=== PATIENT | female | born 1955 | race Caucasian/White ===

== ENCOUNTER 2019-02-25 11:52 | Outpatient (CLI) | payer BC, SELFPAY ==
[2019-02-25 12:03] LABS: Abs Immature Grans 0.02 k/cumm (0.0-0.09); Absolute Basophil Count 0.03 k/cumm (0.0-0.2); Absolute Eosinophil Count 0.07 k/cumm (0.0-0.7); Absolute Lymphocyte Count 2.51 k/cumm (1.2-3.4); Absolute Monocyte Count 0.47 k/cumm (0.11-0.7); Absolute Neutrophil Count 4.98 k/cumm (1.2-6.7); Basophils % 0.4; Eosinophils % 0.9; HGB 14.3 g/dL (12.0-15.5); Immature Grans % 0.2; Lymphocytes % 31.1; Mean Corp. HGB Concentration 33.3 g/dL (32.0-36.0); Mean Corpuscular Hemoglobin 30.2 pg (27.0-33.0); Mean Corpuscular Volume 90.9 fL (80-95); Mean Platelet Volume 9.1 fL (8.0-11.0); Monocytes % 5.8; Neutrophils % 61.6; Platelet Count 378 x1000/uL (130-400); RBC 4.73 m/cumm (4.00-5.20); RBC Distribution Width 13.3 % (11.7-14.6); White Blood Cell Count 8.08 k/cumm (4.4-10.8)
== END 2019-02-25 12:12 ==
PROVIDERS: PCP Nurse Practitioner Family; Visit Provider Obstetrics & Gynecology
DX: N81.10 Cystocele, unspecified (principal); N81.6 Rectocele; Z01.812 Encounter for preprocedural laboratory examination; Z01.818 Encounter for other preprocedural examination
CPT/HCPCS: 36415; 86850; 86900; 86901; 85025

== ENCOUNTER 2019-03-03 07:25 | Observation (INO) | payer BC, SELFPAY ==
[2019-03-03] VITALS (12 sets, daily range): BP systolic 104–149; BP diastolic 51–87; PULSE 67–90; RESP 1–20; TEMP 36.3–36.7; O2SAT 92–98
[2019-03-03] MEDS: Lactated Ringers 1,000 ML 125 ML IV (08:10)
[2019-03-03] MEDS: ceFAZolin 2 GM/50 ML BAG IVPB (09:01)
[2019-03-03] MEDS: Vasopressin 20 UNITS/ML VIAL (09:11)
[2019-03-03] MEDS: Normal Saline 50 ML (09:11)
[2019-03-03] MEDS: Normal Saline-STERILE FIELD 0.9% 10 ML SYR (09:11)
[2019-03-03] MEDS: Lactated Ringers 1,000 ML 75 ML IV ×2 (12:24→20:14)
--- NOTE | 2019-03-03 13:30 | NUR.NOTE ---
1145- Arrived to room 305 via bed from PACU. IV patent in R antecubital space. LR at 120 cc/hr. Kaiser patent to BSD, SCD's in place bilat. Report received from PACU nurse Myles Scott RN. Pt awake and alert.Nursing Note:
[2019-03-03] MEDS: Albuterol 2.5 MG/3 ML INH SOLN VIAL IH (15:04)
[2019-03-03] MEDS: Ketorolac 30 MG/ML VIAL IVP ×2 (15:56→21:55)
[2019-03-03] MEDS: Docusate Sodium 100 MG CAP PO (20:13)
[2019-03-03] MEDS: Metoprolol CR 100 MG TABCR PO (21:56)
[2019-03-03] MEDS: Aspirin E.C. 81 MG TABEC PO (21:56)
[2019-03-03] MEDS: Simvastatin 40 MG TAB PO (21:57)
[2019-03-04 00:05] VITALS: BP 100/63; PULSE 90; RESP 16; TEMP 36.6
[2019-03-04] MEDS: Ketorolac 30 MG/ML VIAL IVP ×2 (04:44→10:45)
[2019-03-04 05:03] VITALS: BP 113/71; PULSE 90; TEMP 36.4
[2019-03-04] MEDS: SUMAtriptan 50 MG TAB 100 MG PO (07:09)
[2019-03-04 08:00] VITALS: BP 109/68; PULSE 90; RESP 16; TEMP 36.5; O2SAT 95
[2019-03-04] MEDS: Docusate Sodium 100 MG CAP PO (08:31)
[2019-03-04] MEDS: Normal Saline Flush 10 ML SYR IV (10:50)
--- NOTE | 2019-03-04 11:38 | DSE_ITS ---
Date of service: 03/04/19 Time of Service: 11:41 DS: Diagnosis Discharge Diagnosis (1) Cystocele with rectocele: Status: Acute Discharge Plan Disposition Patient Disposition: HOME Condition: Good Discharge Details Reason For Visit: CYTOCELE / RECTOCELE Admit Date/Time: 03/03/19 07:25 Admit Provider: David Becerril Attending Provider: David Becerril Primary Care Provider: Kate Lovell Hospital Course Hospital Course: The patient was taken to the operating room on HD 1 for anterior and posterior colporrhaphy. She was maintained on observation overnight. On POD 1 vaginal packing was removed and she was able to void without difficulty. She did have a bowel movement without difficulty as well. Pain was well controlled. She was fel t suitable for discharge home. Home Meds and New Rx's Prescriptions: New oxycodone-acetaminophen 5-325 mg Tablet 1 tab PO Q4H PRN PRNQty: 30 RF: 0 docusate sodium [Colace] 100 mg Capsule 100 mg PO BID Qty: 60 RF: 0 Continued albuterol sulfate 2.5 mg /3 mL (0.083 %) solution for nebulization 2.5 mg IH TID RF: 0 aspirin 81 mg tablet,delayed release (DR/EC) 81 mg PO HS RF: 0 cannabidiol (CBD) extract 100 mg/mL solution PO BID RF: 0 metoprolol succinate 100 mg capsule,sprinkle,ER 24hr 100 mg PO HS RF: 0 simvastatin 40 mg tablet 40 mg PO HS RF: 0 sumatriptan succinate 100 mg tablet 100 mg PO ONCE RF: 0 cyclobenzaprine 10 mg tablet 10 mg PO TID PRNRF: 0 fluticasone propionate [Allergy Relief (fluticasone)] 50 mcg/actuation spray,suspension 2 spray LORRIE DAILY PRNRF: 0 estradiol 0.01 % (0.1 mg/gram) cream 1 gm VG DAILY Qty: 42.5 RF: 1 albuterol sulfate [ProAir HFA] 90 mcg/actuation Hfa Aerosol Inhaler 2 puff INHALATION TID RF: 0 Discharge Instructions Activity:: Pelvic rest Equipment/Supplies:: No Equipment Needed Diet:: As Tolerated Discharge Orders Discharge Orders: Discharge Order (Routine); Ordered 03/04/19 Ordered By: David Becerril DS: Summary Status at Discharge Functional status at discharge: independent ambulation Overall status at discharge: patient is back to baseline Mental Status: mental status grossly normal Speech and Movement: speech and movement normal Mood: congruent mood Affect: normal affect Exam Psych Mental Status: mental status grossly normal Speech and Movement: speech and movement normal Mood: congruent mood Affect: normal affect DS: Data Vitals/I&O Vitals and I&O: Vital Signs Temperature 97.7 F 03/04/19 08:00 Temperature Source Oral 03/04/19 08:00 Pulse 90 03/04/19 08:00 Pulse Rhythm Regular 03/04/19 08:00 Respiratory Rate 16 03/04/19 08:00 Respiratory Effort Non-Labored 03/04/19 08:00 Respiratory Depth Normal 03/04/19 08:00 Respiratory Pattern Normal 03/04/19 08:00 Blood Pressure 109/68 03/04/19 08:00 Pulse Oximetry 95 03/04/19 08:00 Respiratory End-tidal CO2 35 03/03/19 11:25 Oxygen Delivery Method Room Air 03/04/19 08:00 Oxygen Flow Rate 0 03/04/19 08:00 Pain Level 1 03/04/19 10:45 Intake & Output 03/03/19 03/03/19 03/04/19 11:59 23:59 11:59 Intake Total 900 / 1637.5 737.5 / 1637.5 Output Total 50 / 50 1550 / 1550 Balance 850 / 1587.5 737.5 / 1587.5 -1550 / -1550 Weight 167 lb 8.821 oz Intake: IV 900 / 1637.5 737.5 / 1637.5 Output: Urine 50 / 50 1550 / 1550 Other: Urine Color Yellow Urine Appearance Clear Clear Clear Urine Odor None Emesis Description None [facility] Medical History Allergic rhinitis (Acute) Backache (Acute) Chronic obstructive lung disease (Chronic) Cystic disease of kidney (Acute) Cystocele (Acute) Depressive disorder (Acute) Hyperlipidemia (Acute) Hypertension (Chronic) Irritable bowel syndrome (Chronic) Migraine without aura (Acute) Multiple renal cysts (Acute) Obesity (Chronic) Pain in left foot (Acute) Surgical History (Updated 03/03/19 @ 07:38 by Patience Elkins RN) Cataract, right eye (Acute ~04/2004) Foot fracture, left (Acute ~04/2006) ORIF H/O: hysterectomy (Chronic ~1982) Ovaries still in place History of appendectomy (Chronic) History of cholecystectomy (Chronic ~04/1983) History of left cataract surgery (Acute ~04/2017) Hx of right knee surgery (Acute) Due to a fall knee split open and they had to use pins and wire per pt. 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
--- NOTE | 2019-03-05 10:14 | W.PM.OP ---
Date of service: 03/03/19 Time of Service: 11:00 Operative Note Operative Note DATE OF PROCEDURE: 03/03/19 PRE-OP DIAGNOSIS: Cystocele, rectocele POST-OP DIAGNOSIS: same PROCEDURE: Anterior and posterior colporrhaphy SURGEON: David Becerril ASSISTING SURGEON: Shima Schmidt ANESTHESIA: CAMRYN ESTIMATED BLOOD LOSS: 75 PATHOLOGY: none sent COMPLICATIONS: None Patient was transported to: PACU Patient's condition: stable Findings: Grade 2 cystocele, grade 3-4 rectocele Procedure Description: The patient was taken to the operating room and after an adequate level general anesthesia was obtained the patient was placed in lithotomy position. The patient was prepped and draped in the usual sterile manner. A Kaiser catheter was placed and bladder draining clear urine. A weighted speculum was placed in the vagina with good visualization of the cystocele defect. The vaginal mucosa was infiltrated with vasopressin solution (20 units in 60 cc). A linear incision was made overlying the bladder and taken to the vaginal cuff. Dissection was carried laterally with both blunt and sharp dissection with Metzenbaum scissors. The defect was first reduced with a pursestring suture of 0 Vicryl. The endopelvic fascial defect was reapproximated with interrupted sutures of 0 Vicryl. Skin edges were trimmed. The mucosa was reapproximated with interrupted vertical mattress sutures of 0 Vicryl. The weighted speculum was removed. AV incision was made over the perineal body after infiltration with vasopressin solution. A linear incision was then made along the vaginal mucosa overlying the rectocele defect. This was also taken to the inferior aspect of the vaginal cuff. Dissection was carried laterally with both blunt and sharp dissection also with Metzenbaum scissors. A pursestring was used to reduce the defect with 0 Vicryl suture. Again in the pelvic fascia was reapproximated midline with interrupted sutures of 0 Vicryl and an excellent reduction in the defect was achieved. Mucosal edges were trimmed. The vaginal mucosa was closed with also with interrupted vertical mattress sutures of 0 Vicryl. Perineal body was reinforced with deep sutures of 0 Vicryl reapproximating the bulbospongiosus muscles. Excellent repair was felt to been achieved. Vaginal packing soaked with permanent was placed in the vagina. The procedure was concluded at this point. All instrumentation was removed. Sponge, lap, and needle counts were correct at the conclusion of the procedure. The patient was transferred to PACU stable condition.
== END 2019-03-04 12:40 | disposition home or self-care (01) ==
LOC: OBS 13:06 → PDS 13:06
PROVIDERS: Admitting Provider Obstetrics & Gynecology; PCP Nurse Practitioner Family; Visit Provider Obstetrics & Gynecology
PROC: 0JQC0ZZ Repair Pelvic Region Subcutaneous Tissue and Fascia, Open Approach (ICD-10-PCS; CPT 57260; principal; 2019-03-03 08:30)
DX: N81.10 Cystocele, unspecified (principal); N81.6 Rectocele; J44.9 Chronic obstructive pulmonary disease, unspecified; I10 Essential (primary) hypertension; F32.9 Major depressive disorder, single episode, unspecified; E78.5 Hyperlipidemia, unspecified; Z90.710 Acquired absence of both cervix and uterus
CPT/HCPCS: 57260; 99239; G0378; J0131; J0690; J1100; J1885; J2250; J2405; J3010; J7613

== ENCOUNTER → 2020-02-09 08:32 | Outpatient (BNVA) | payer MEDICARE, BC, SELFPAY | PROVIDERS: PCP Nurse Practitioner Family; Referring Provider Nurse Practitioner Family; Visit Provider Nurse Practitioner Adult Health | DX: G43.109 Migraine with aura, not intractable, without status migrainosus; I10 Essential (primary) hypertension; J44.9 Chronic obstructive pulmonary disease, unspecified; Z87.891 Personal history of nicotine dependence | CPT/HCPCS: 99204 ==

== ENCOUNTER → 2020-05-10 12:24 | Outpatient (BNVA) | payer MEDICARE, BC, SELFPAY | PROVIDERS: PCP Nurse Practitioner Family; Referring Provider Nurse Practitioner Family; Visit Provider Nurse Practitioner Adult Health | DX: G43.009 Migraine without aura, not intractable, without status migrainosus (principal) | CPT/HCPCS: 99213 ==

== ENCOUNTER → 2020-08-09 08:02 | Outpatient (BNVA) | payer MEDICARE, BC, SELFPAY | PROVIDERS: PCP Nurse Practitioner Family; Referring Provider Nurse Practitioner Family; Visit Provider Nurse Practitioner Adult Health | DX: G43.009 Migraine without aura, not intractable, without status migrainosus (principal) | CPT/HCPCS: 99212; 99442 ==

== ENCOUNTER → 2020-09-20 12:20 | Outpatient (BNVA) | payer MEDICARE, BC, SELFPAY | PROVIDERS: PCP Nurse Practitioner Family; Referring Provider Nurse Practitioner Family; Visit Provider Nurse Practitioner Adult Health | DX: G43.009 Migraine without aura, not intractable, without status migrainosus (principal); G47.30 Sleep apnea, unspecified | CPT/HCPCS: 99213 ==

== ENCOUNTER → 2020-12-20 12:25 | Outpatient (BNVA) | payer MEDICARE, BC, SELFPAY | PROVIDERS: PCP Nurse Practitioner Family; Referring Provider Nurse Practitioner Family; Visit Provider Nurse Practitioner Adult Health | DX: G43.009 Migraine without aura, not intractable, without status migrainosus (principal) | CPT/HCPCS: 99213 ==

== ENCOUNTER → 2021-06-26 12:55 | Outpatient (BNVA) | payer MEDICARE, BC, SELFPAY | PROVIDERS: PCP Nurse Practitioner Family; Referring Provider Nurse Practitioner Family; Visit Provider Nurse Practitioner Adult Health | DX: G47.30 Sleep apnea, unspecified (principal); G43.009 Migraine without aura, not intractable, without status migrainosus | CPT/HCPCS: 99212; 99213 ==